=== PATIENT | male | born 1990 | race Two or more races ===

== ENCOUNTER 2025-10-04 09:06 | Emergency (ER) | payer MEDICAID, OTHER ==
[~2025-10-04] VITALS: Ht 188 cm; Wt 57.0 kg
--- NOTE | 2025-10-04 09:37 | ED.PDOC ---
History of Present Illness(SKN HPI Comments 35 year old male presents to the ED with a chief complaint of wound check onset today. Patient states he went to Dr[facility], was advised to come to ED. Patient states he has been experiencing RT wound foot for the past 3 months, was not able to get it checked due to work. He currently rates pain 10/10. Denies nausea, vomiting, diarrhea, fever, chills, chest pain, shortness of breath, headache, dizziness, numbness/tingling. No other symptoms or modifying factors present at this time. Chief Complaint: Wound Check Time Seen by MD: 09:30 History of Present Illness: Medications, Allergies Allergies: Coded Allergies: Penicillins (Verified Allergy, Unknown, 10/04/25) Information Source: Patient, Relative Mode of Arrival: Ambulatory Severity: Moderate Timing: Months Duration: Since onset Prehospital treatment: None Location: Foot (RT) Mechanism: Preceding Wound Object: Unknown Condition of Object: None Retained Foreign Body: No Wound Type: Other Immunization Status of Animal: NA History of: None Past Medical History PAST MEDICAL HISTORY: Denies Surgical History: Denies all surgeries Family History Family History: Reviewed,noncontributory to illness, No family hx of Cancer, No family hx of DM, No family hx of Heart tracy, No family hx of HTN, No family hx ofKidney tracy, No family hx of Liver tracy, No family hx of Lung tracy, No family hx of Stroke Social History Smoker: Non-Smoker Alcohol: Denies ETOH Use Drugs: Denies Drug Use Lives In: Home Constitutional: denies: chills, diaphoresis, fatigue, fever, malaise, sweats, weakness, others EENTM: denies: blurred vision, double vision, ear bleeding, ear discharge, ear drainage, ear pain, ear ringing, eye pain, eye redness, hearing loss, mouth pain , mouth swelling, nasal discharge, nose bleeding, nose congestion, nose pain, photophobia, tearing, throat pain, throat swelling, voice changes, others Respiratory: denies: cough, hemoptysis, orthopnea, SOB at rest, shortness of breath, SOB with excertion, stridor, wheezing, others Cardiovascular: denies: chest pain, dizzy spells, diaphoresis, Dyspnea on exertion, edema, irregular heart beat, left arm pain, lightheadedness, palpitations, PND, syncope, others Gastrointestinal: denies: abdomen distended, abdominal pain, blood streaked bowels, constipated, diarrhea, dysphagia, difficulty swallowing, hematemesis, melena, nausea, poor appetite, poor fluid intake, rectal bleeding, rectal pain, vomiting, others Genitourinary: denies: burning, dysuria, flank pain, frequency, hematuria, incontinence, penile discharge, penile sore, pain, testicle pain, testicle swelling, urgency, others Neurological: denies: dizziness, fainting, headache, left sided numbness, left sided weakness, numbness, paresthesia, pre-existing deficit, right sided numbness, right sided weakness, seizure, speech problems, tingling, tremors, weakness, others Musculoskeletal: reports: others (RT foot wound); denies: back pain, gout, joint pain, joint swelling, muscle pain, muscle stiffness, neck pain Integumetry: reports: wounds (RT foot); denies: bruises, change in color, change in hair/nails, dryness, laceration, lesions, lumps, rash, others Allergic/Immunocompromised: denies: Difficulty Healing, Frequent Infections, Hives, Itching, others Hematologic/Lymphatic: denies: anemia, blood clots, easy bleeding, easy bruising, swollen glands, others Endocrine: denies: excessive hunger, excessive sweating, excessive thirst, excessive urination, flushing, intolerance to cold, intolerance to heat, unexpla ined weight gain, unexplained weight loss, others Psychiatric: denies: anxiety, bipolar disorder, depression, hopeless, panic disorder, schizophrenia, sleepless, suicidal, others All Other Systems: Reviewed and Negative Physical Exam General Appearance: No Apparent Distress HEENT: Normal ENT Inspection, Pharynx Normal, TMs Normal Neck: Full Range of Motion, Non-Tender, Normal, Normal Inspection Respiratory: Chest Non-Tender, Lungs Clear, No Accessory Muscle Use, No Respiratory Distress, Normal Breath Sounds Cardiovascular: No Edema, No JVD, No Murmur, No Gallop, Normal Peripheral Pulses, Regular Rate/Rhythm Breast Exam: Deferred Gastrointestinal: No Organomegaly, Non Tender, No Pulsatile Mass, Normal Bowel Sounds, Soft Genitalia: Deferred Pelvic: Deferred Rectal: Deferred Extremities: No calf tenderness, Normal capillary refill, No pedal edema Musculoskeletal : Apperance: Normal Neurologic: Alert, wardrobe specialist II-XII nml as Tested, No Motor Deficits, Normal Affect, Normal Mood, No Sensory Deficits Cerebellar Function: Normal Reflexes: Normal Skin: Dry, Normal Color, Rash (Redness to the right foot), Warm Lymphatic: No Adenopathy Was a procedure done? Was a procedure done?: No Differential Diagnosis (INTG) Differential Diagnosis: Cellulitis, Fracture X-Ray, Labs, Meds, VS Vital Signs Date Time Temp Pulse Resp B/P (MAP) Pulse Ox O2 Delivery O2 Flow Rate FiO2 10/04/25 11:06 97.9 97 16 126/85 (99) 100 97.9 10/04/25 09:16 98.8 93 16 121/68 100 98.8 Lab Test 10/04/25 09:58 Range/Units White Blood Count 4.3 L 4.4-10.8 10^3/uL Red Blood Count 3.70 L 4.5-5.90 10^6/uL Hemoglobin 11.4 L 13.5-17.5 g/dL Hematocrit 33.4 L 41.0-53.0 % Mean Corpuscular Volume 90.3 80.0-100.0 fL Mean Corpuscular Hemoglobin 30.8 28.0-32.0 pg Mean Corpuscular Hemoglobin Concent 34.1 32.0-36.0 g/dL Red Cell Distribution Width 12.4 11.8-14.3 % Platelet Count 201 140-450 10^3/uL Mean Platelet Volume 9.8 6.9-10.8 fL Neutrophils (%) (Auto) 48.8 37.0-80.0 % Lymphocytes (%) (Auto) 34.3 10.0-50.0 % Monocytes (%) (Auto) 8.1 0.0-12.0 % Eosinophils (%) (Auto) 8.2 H 0.0-7.0 % Basophils (%) (Auto) 0.6 0.0-2.0 % Neutrophils # (Auto) 2.1 1.6-8.6 10 ^3/uL Lymphocytes # (Auto) 1.5 0.4-5.4 10 ^3/uL Monocytes # (Auto) 0.3 0-1.3 10 ^3/uL Eosinophils # (Auto) 0.4 0-0.8 10 ^3/uL Basophils # (Auto) 0 0-0.2 10 ^3/uL Nucleated Red Blood Cells 0.2 % Sodium Level 136 136-145 mmol/L Potassium Level 4.0 3.5-5.1 mmol/L Chloride Level 104 98-107 mmol/L Carbon Dioxide Level 26 20-31 mmol/L Anion Gap 6 5-15 Blood Urea Nitrogen 12 9-23 mg/dL Creatinine 0.82 0.700-1.30 mg/dL Glomerular Filtration Rate Calc 118 >90 mL/min BUN/Creatinine Ratio 14.6 10.0-20.0 Serum Glucose 88 74-106 mg/dL Calcium Level 9.1 8.7-10.4 mg/dL IMPRESSION: 1. No acute fracture or dislocation. 2. Soft tissue density in the region of the dorsal great toe in the region of the toenail to be correlated with physical examination. Mild soft tissue swelling of the plantar surface of the distal great toe. All CT scans at this medical facility are performed using dose modulation techniques as appropriate to a performed exam including the following: Automated exposure control was utilized; adjustment of the MA and/or KV according to patient size; and use of iterative reconstruction technique. The CBC is within normal limits The chemistry panel is within normal limits The patient was given a prescription of clindamycin The patient was also given a prescription of Ultram Images Reviewed?: Images reviewed and evaluated by me Time of 1ST Reevaluation: 10:00 Reevaluation 1ST: Unchanged Patient Education/Counseling: Diagnosis, Treatment, Prognosis, Need For Follow Up Family Education/Counseling: Diagnosis, Treatment, Prognosis, Need For Follow Up SEPSIS Sepsis Screen Date sepsis recognized/suspect: Oct 04, 2025 Time Sepsis recognized/suspect: 919 Recent Procedure: No On Antibiotic Therapy: No Respiratory Rate >20: No Heart Rate >90: No Temp<36 C (96.8 F) or >38.3 C: No SBP <90 or MAP <65 mmHG: No New Acute Mental Status Change: No Is the patient on CPAP, BIPAP,: No Physician Orders Urinalysis (10/04/25 09:34) Ct R Foot Wo Contrast (10/04/25 09:34) Vital Signs Date Time Temp Pulse Resp B/P (MAP) Pulse Ox O2 Delivery O2 Flow Rate FiO2 10/04/25 11:06 97.9 97 16 126/85 (99) 100 97.9 10/04/25 09:16 98.8 93 16 121/68 100 98.8 Laboratory Tests Test 10/04/25 09:58 White Blood Count 4.3 10^3/uL (4.4-10.8) L Departure 1 Departure Time of Disposition: 13:48 Impression: Primary Impression: Cellulitis of right foot Disposition: 01 HOME / SELF CARE / HOMELESS Condition: Fair Discharged With: Self Critical Care Note Critical Care Time?: No Stability Stability form required: No Heart Score Heart Score: Heart Score Response (Comments) Value History N/A 0 EKG N/A 0 Age N/A 0 Risk Factors N/A 0 Troponin N/A 0 Total 0 I personally scribed for KRYSTLE BERMEO MD ([email or web address]) on 10/04/25 at 09:37. Electronically submitted by Lyubov Bardales ([email or web address]). I personally scribed for KRYSTLE BERMEO MD ([email or web address]) on 10/04/25 at 11:53. Electronically submitted by Lyubov Bardales ([email or web address]). KRYSTLE BERMEO MD Oct 04, 2025 09:37
[2025-10-04 10:14] LABS: Chloride 104 mmol/L (98-107); Hematocrit 33.4 % (41.0-53.0); Hemoglobin 11.4 g/dL (13.5-17.5); Mean Corpuscular Hemoglobin 30.8 pg (28.0-32.0); Mean Corpuscular Volume 90.3 fL (80.0-100.0); Nucleated Red Blood Cells % 0.2 %; Potassium 4.0 mmol/L (3.5-5.1); Sodium 136 mmol/L (136-145)
[2025-10-04 10:15] LABS: Anion Gap 6 (5-15); Carbon Dioxide 26 mmol/L (20-31)
[2025-10-04 10:16] LABS: Calcium 9.1 mg/dL (8.7-10.4)
[2025-10-04 10:20] LABS: BUN/Creatinine Ratio 14.6 (10.0-20.0); Blood Urea Nitrogen 12 mg/dL (9-23); Glucose 88 mg/dL (74-106)
--- NOTE | 2025-10-04 11:44 | DVH ---
CLINICAL INDICATION: Right pain. TECHNIQUE: Noncontrast CT of the right foot was performed. Sagittal and coronal reformatted images are provided. COMPARISON: None CT Dose: CTDI volume is 7.8 mGy. Dose-length product is 231.9 mGy*cm FINDINGS: No fracture or dislocation. No cortical erosion or cortical destruction. There is soft tissue density in the region of the dorsal great toe. Uncertain if this is related to the patient's toenail. There appears to be mild soft tissue swelling along the plantar surface of the distal great toe. There is 2nd through 5th hammertoe deformity. The joint spaces appear to otherwise the maintained. IMPRESSION: 1. No acute fracture or dislocation. 2. Soft tissue density in the region of the dorsal great toe in the region of the toenail to be correlated with physical examination. Mild soft tissue swelling of the plantar surface of the distal great toe. All CT scans at this medical facility are performed using dose modulation techniques as appropriate to a performed exam including the following: Automated exposure control was utilized; adjustment of the MA and/or KV according to patient size; and use of iterative reconstruction technique.
[2025-10-04] MEDS ORDERED: HYDROcodone-ACET 5/325MG TAB PO ONE (13:15)
[2025-10-04] MEDS ORDERED: CLIN150C PO (13:51)
[2025-10-04] MEDS ORDERED: HYDR-4902 PO (13:51)
[2025-10-04 14:18] VITALS: BP 128/95; PULSE 89; RESP 16; TEMP 98.4; O2SAT 97
== END 2025-10-04 15:14 | disposition left against medical advice (07) ==
LOC: ER 09:06
DX: L03.115 Cellulitis of right lower limb (principal); Z88.0 Allergy status to penicillin; Z79.899 Other long term (current) drug therapy
CPT/HCPCS: 36415; 73700; 80048; 85025